=== PATIENT | male | born 1940 | race Caucasian/White ===

== ENCOUNTER 2025-04-26 10:12 | Emergency (ER) | payer MEDICARE ==
[2025-04-26 10:57] LABS: #Basophils 0.05 10x3/uL (0.0-0.2); #Eosinophils 0.21 10x3/uL (0.0-0.5); #Monocytes 0.46 10x3/uL (0.0-1.1); #Neutrophils 5.91 10x3/uL (1.5-8.4); %Basophils 0.7 % (0.0-2.0); %Eosinophils 2.8 % (0.0-6.0); %Lymphocytes 11.9 % (18.0-47.0); %Monocytes 6.1 % (0.0-10.0); %Neutrophils 78.1 % (40.0-75.0); Hematocrit 42.0 % (38.8-50.0); Hemoglobin 15.0 g/dL (13.5-17.5); Mean Corpuscular Hemoglobin 31.1 pg (27.0-33.0); Mean Corpuscular Volume 87.0 fL (81.2-95.1); Platelet Count 189 10x3/uL (150-450); Red Blood Cell (RBC) Count 4.83 10x6/uL (4.32-5.72); White Blood Cell (WBC) Count 7.56 10x3/uL (3.5-10.5)
[2025-04-26 11:11] LABS: ALT (SGPT) 46 U/L (Less than 45); AST (SGOT) 53 U/L (11-34); Albumin 3.8 g/dL (3.1-4.5); Alkaline Phosphatase 77 U/L (40-110); Anion Gap 14 mmol/L (10-20); BUN (Urea Nitrogen) 15 mg/dL (8.4-25.7); Bilirubin, Total 0.7 mg/dL (0.3-1.2); Calc. Creatinine Clearance 0 mL/min (70-130); Calcium 8.8 mg/dL (7.8-10.44); Carbon Dioxide 26 mmol/L (23-31); Chloride 107 mmol/L (98-107); Globulin 3.6 g/dL (2.4-3.5); Glucose 108 mg/dL (83-110); Potassium 4.6 mmol/L (3.5-5.1); Sodium 142 mmol/L (136-145)
[2025-04-26 11:19] LABS: Troponin I 0.104 ng/mL (< 0.028)
[2025-04-26 13:43] LABS: Troponin I 0.103 ng/mL (< 0.028)
== END 2025-04-26 15:36 | disposition home or self-care (01) ==
LOC: CSHERS 10:12
DX: R00.2 Palpitations (principal); R06.02 Shortness of breath; R79.89 Other specified abnormal findings of blood chemistry; I48.91 Unspecified atrial fibrillation; I10 Essential (primary) hypertension
CPT/HCPCS: 36415; 71250; 80053; 83605; 83880; 84443; 84484; 85025; 93005

== ENCOUNTER 2025-04-30 10:54 | Emergency (ER) | payer MEDICARE ==
[2025-04-30] MEDS ORDERED: Aspirin Chewable 81 MG TAB ONE (11:48)
[2025-04-30 12:12] LABS: #Basophils 0.03 10x3/uL (0.0-0.2); #Eosinophils 0.11 10x3/uL (0.0-0.5); #Monocytes 0.57 10x3/uL (0.0-1.1); #Neutrophils 7.72 10x3/uL (1.5-8.4); %Basophils 0.3 % (0.0-2.0); %Eosinophils 1.2 % (0.0-6.0); %Lymphocytes 10.1 % (18.0-47.0); %Monocytes 6.1 % (0.0-10.0); %Neutrophils 82.1 % (40.0-75.0); Hematocrit 41.4 % (38.8-50.0); Hemoglobin 14.6 g/dL (13.5-17.5); Mean Corpuscular Hemoglobin 30.8 pg (27.0-33.0); Mean Corpuscular Volume 87.3 fL (81.2-95.1); Platelet Count 203 10x3/uL (150-450); Red Blood Cell (RBC) Count 4.74 10x6/uL (4.32-5.72); White Blood Cell (WBC) Count 9.40 10x3/uL (3.5-10.5)
[2025-04-30 12:29] LABS: ALT (SGPT) 42 U/L (Less than 45); AST (SGOT) 34 U/L (11-34); Albumin 3.5 g/dL (3.1-4.5); Alkaline Phosphatase 68 U/L (40-110); Anion Gap 12 mmol/L (10-20); BUN (Urea Nitrogen) 15 mg/dL (8.4-25.7); Bilirubin, Total 0.7 mg/dL (0.3-1.2); Calc. Creatinine Clearance 0 mL/min (70-130); Calcium 8.2 mg/dL (7.8-10.44); Carbon Dioxide 23 mmol/L (23-31); Chloride 110 mmol/L (98-107); Globulin 2.8 g/dL (2.4-3.5); Glucose 105 mg/dL (83-110); Potassium 4.0 mmol/L (3.5-5.1); Sodium 141 mmol/L (136-145)
[2025-04-30 12:32] LABS: Troponin I 0.012 ng/mL (< 0.028)
[2025-04-30 15:41] LABS: Troponin I 0.018 ng/mL (< 0.028)
== END 2025-04-30 16:22 | disposition home or self-care (01) ==
LOC: CSHERS 10:54
DX: M79.605 Pain in left leg (principal); R09.89 Other specified symptoms and signs involving the circulatory and respiratory systems; I10 Essential (primary) hypertension; I48.91 Unspecified atrial fibrillation
CPT/HCPCS: 36415; 80053; 83880; 84484; 85025; 93005; 94760